=== PATIENT | female | born 1945 | race Caucasian/White ===

== ENCOUNTER 2018-04-11 17:31 | Inpatient (IN) | payer MEDICARE, OTHER ==
[~2018-04-11] VITALS: Ht 167.6 cm; Wt 87.1 kg
[2018-04-11] MEDS ORDERED: BUPROPN HCL PO (17:44)
[2018-04-11] MEDS ORDERED: FLUVOXAMINE 100 MG (17:44)
[2018-04-11] MEDS ORDERED: JANUMET (17:44)
[2018-04-11] MEDS ORDERED: DIVALPROEX 250 MG (17:44)
[2018-04-11] MEDS ORDERED: ARIPIPRAZOLE TAB 5MG (17:44)
[2018-04-11] MEDS ORDERED: CLONAZEPAM TAB 1MG (17:44)
[2018-04-11] MEDS ORDERED: OLANZAPINE 20 MG (17:44)
[2018-04-11] MEDS ORDERED: LOPE2CAP40 PO (17:44)
[2018-04-11] MEDS ORDERED: VESICARE TAB 10MG (17:44)
[2018-04-11] MEDS ORDERED: PROPRANOLOL 20 MG (17:44)
[2018-04-11 18:25] LABS: BASOPHILS % (AUTO) 0.2 % (0.0-2.0); EOSINOPHILS % (AUTO) 0.4 % (0.0-7.0); HEMOGLOBIN 12.7 g/dL (10.9-14.3); LYMPHOCYTES # (AUTO) 2.4 K/uL (20.0-40.0); LYMPHOCYTES % (AUTO) 25.6 % (20.5-51.5); MEAN CORPUSCULAR HEMOGLOBIN 28.1 uug (24.7-32.8); MEAN CORPUSCULAR HGB CONC 33 g/dL (32.3-35.6); MEAN CORPUSCULAR VOLUME 86.3 fL (75.5-95.3); MONOCYTES # (AUTO) 0.7 K/uL (2.0-10.0); NEUTROPHILS # (AUTO) 6.1 K/uL (1.8-8.9); NEUTROPHILS % (AUTO) 65.8 % (38.5-71.5); PLATELET COUNT (AUTO) 240 K/uL (179-408); RED BLOOD CELL COUNT(AUTO) 4.52 MIL/uL (3.63-4.92); WHITE BLOOD COUNT (AUTO) 9.2 K/uL (3.8-11.8)
[2018-04-11 18:28] LABS: CARBON DIOXIDE 25 mmol/L (21-32); CHLORIDE 105 mmol/L (98-107); GLUCOSE 176 mg/dL (74-106); POTASSIUM 3.7 mmol/L (3.5-5.1); UREA NITROGEN, BLOOD 18 mg/dL (7-18)
[2018-04-11 18:29] LABS: ETHANOL < 3 MG/DL (0-0)
[2018-04-11 18:40] LABS: ALANINE AMINOTRANSFERASE 16 U/L (14-59); ALKALINE PHOSPHATASE 79 U/L (50-136); ASPARTATE AMINOTRANSFERASE 8 U/L (15-37); BILIRUBIN,DIRECT 0.1 mg/dL (0.0-0.2); BILIRUBIN,TOTAL 0.2 mg/dL (0.2-1.0); TOTAL PROTEIN, SERUM 6.5 g/dL (6.4-8.2)
[2018-04-11 19:03] LABS: *BILIRUBIN,URIN NEGATIVE (NEGATIVE); *BLOOD, URINE 2+ (NEGATIVE); *COLOR,URINE YELLOW (YELLOW); *KETONES,URINE NEGATIVE (NEGATIVE); *UROBILINOGEN,URINE 0.2 E.U./dl (NORMAL); LEUKOCYTE ESTERASE ,URINE 1+ (NEGATIVE); NITRITE, URINE NEGATIVE (NEGATIVE); UGLUCOSE NEGATIVE (NEGATIVE)
[2018-04-11 19:12] LABS: *AMPHETAMINE, URINE NEGATIVE (NEGATIVE); *BARBITURATE, URINE NEGATIVE (NEGATIVE); *CANNABINOID, URINE NEGATIVE (NEGATIVE); *COCCAINE, URINE NEGATIVE (NEGATIVE); *OPIATE, URINE NEGATIVE (NEGATIVE); *PHENCYCLIDINE SCREEN,URINE NEGATIVE (NEGATIVE)
[2018-04-11 19:13] LABS: THYROID STIMULATING HORMONE 1.656 mIU/mL (0.358-3.740)
[2018-04-11 19:17] LABS: *CLARITY,URINE SLIGHTLY CLOUDY (CLEAR)
[2018-04-11 19:20] LABS: BACTERIA,URINE RARE /HPF (NONE SEEN); SQUAMOUS EPITHELIAL CELL,UR FEW /HPF (NONE SEEN)
[2018-04-11] MEDS ORDERED: ZOLPIDEM 5 MG TABLET PO PRN (22:00)
[2018-04-11] MEDS ORDERED: MAGNESIUM HYDROXIDE 30 ML LIQUID UDC PO PRN (22:00)
[2018-04-11] MEDS ORDERED: MAG HYDROX/AL HYDROX/SIMETH 30 ML LIQUID UDC PO PRN (22:00)
[2018-04-11] MEDS ORDERED: CLONAZEPAM 0.5 MG TABLET PO SCH (22:00)
[2018-04-11] MEDS ORDERED: CLONAZEPAM 0.5 MG TABLET PO PRN (22:15)
[2018-04-12 07:30] VITALS: BP 166/71
[2018-04-12] MEDS ORDERED: ZOLPIDEM 5 MG TABLET PO PRN (08:00)
[2018-04-12] MEDS ORDERED: DEXTROSE 50% 50 ML DISP.SYRIN IV PRN (13:30)
[2018-04-12] MEDS ORDERED: LOPERAMIDE HCL 2 MG CAPSULE PO PRN (13:30)
[2018-04-12] MEDS: CEphaleXIN 500 MG CAPSULE PO SCH ×2 (14:50→21:50)
[2018-04-12 15:35] VITALS: BP 163/72
[2018-04-12] MEDS: OXYBUTYNIN CHLORIDE 5 MG TABLET PO SCH (16:36)
[2018-04-12] MEDS: BLOOD SUGAR DIAGNOSTIC 1 EACH STRIP VI SCH ×2 (16:36→20:11)
[2018-04-12 20:21] VITALS: BP 127/82
[2018-04-12] MEDS: CLONAZEPAM 1 MG TABLET PO SCH (20:27)
[2018-04-12] MEDS: DIVALPROEX SPRINKLE 125 MG CAP.SPRINK PO SCH (20:27)
[2018-04-12] MEDS: PROPRANOLOL HCL 20 MG TABLET PO SCH (20:28)
[2018-04-12] MEDS: ZIPRASIDONE 20 MG CAPSULE PO SCH (20:48)
[2018-04-13] MEDS: CEphaleXIN 500 MG CAPSULE PO SCH ×3 (06:28→22:01)
[2018-04-13] MEDS: BLOOD SUGAR DIAGNOSTIC 1 EACH STRIP VI SCH ×4 (06:33→20:22)
[2018-04-13 07:30] VITALS: BP 192/94
[2018-04-13] MEDS ORDERED: SOLIFENACIN SUCCINATE 5 MG TABEC PO SCH (09:00)
[2018-04-13] MEDS ORDERED: buPROPion XL 150 MG TAB.SR.24H PO SCH (09:00)
[2018-04-13] MEDS: FLUVOXAMINE MALEATE 50 MG TABLET PO SCH ×2 (09:44→17:35)
[2018-04-13] MEDS: ZIPRASIDONE 20 MG CAPSULE PO SCH ×2 (09:44→20:15)
[2018-04-13] MEDS: OXYBUTYNIN CHLORIDE 5 MG TABLET PO SCH ×3 (09:44→17:35)
[2018-04-13] MEDS: PROPRANOLOL HCL 20 MG TABLET PO SCH ×2 (09:45→20:17)
[2018-04-13 16:00] VITALS: BP 150/63
[2018-04-13 20:00] VITALS: BP 161/73
[2018-04-13] MEDS: CLONAZEPAM 1 MG TABLET PO SCH (20:15)
[2018-04-13] MEDS: DIVALPROEX SPRINKLE 125 MG CAP.SPRINK PO SCH (20:15)
[2018-04-13] MEDS: INSULIN REGULAR, HUMAN 300 UNIT/3 ML VIAL SQ PRN (20:26)
[2018-04-14] MEDS: CEphaleXIN 500 MG CAPSULE PO SCH ×3 (06:09→21:23)
[2018-04-14] MEDS: BLOOD SUGAR DIAGNOSTIC 1 EACH STRIP VI SCH ×4 (06:33→20:28)
[2018-04-14 07:30] VITALS: BP 164/67
[2018-04-14] MEDS: ZIPRASIDONE 20 MG CAPSULE PO SCH ×2 (08:42→20:12)
[2018-04-14] MEDS: OXYBUTYNIN CHLORIDE 5 MG TABLET PO SCH ×3 (08:42→17:28)
[2018-04-14] MEDS: FLUVOXAMINE MALEATE 50 MG TABLET PO SCH ×2 (08:43→17:28)
[2018-04-14] MEDS: PROPRANOLOL HCL 20 MG TABLET PO SCH ×2 (08:43→20:12)
[2018-04-14] MEDS: buPROPion XL 150 MG TAB.SR.24H PO SCH (08:44)
[2018-04-14] MEDS: LOPERAMIDE HCL 2 MG CAPSULE PO PRN (10:06)
[2018-04-14] MEDS: ACETAMINOPHEN 325 MG TABLET PO PRN (14:40)
[2018-04-14 16:05] VITALS: BP 149/75
[2018-04-14 20:08] VITALS: BP 132/69
[2018-04-14] MEDS: CLONAZEPAM 1 MG TABLET PO SCH (20:12)
[2018-04-14] MEDS: DIVALPROEX SPRINKLE 125 MG CAP.SPRINK PO SCH (20:12)
[2018-04-14] MEDS: INSULIN REGULAR, HUMAN 300 UNIT/3 ML VIAL SQ PRN (20:29)
[2018-04-15] MEDS: CEphaleXIN 500 MG CAPSULE PO SCH ×3 (06:28→21:05)
[2018-04-15] MEDS: BLOOD SUGAR DIAGNOSTIC 1 EACH STRIP VI SCH ×4 (06:46→20:17)
[2018-04-15 07:30] VITALS: BP_SYST 124; BP_SYST 128; BP_DIAS 32; BP_DIAS 71
[2018-04-15] MEDS: ZIPRASIDONE 20 MG CAPSULE PO SCH ×2 (08:14→20:01)
[2018-04-15] MEDS: buPROPion XL 150 MG TAB.SR.24H PO SCH (08:14)
[2018-04-15] MEDS: OXYBUTYNIN CHLORIDE 5 MG TABLET PO SCH ×3 (08:15→17:36)
[2018-04-15] MEDS: PROPRANOLOL HCL 20 MG TABLET PO SCH ×2 (08:15→20:00)
[2018-04-15] MEDS: FLUVOXAMINE MALEATE 50 MG TABLET PO SCH (08:20)
[2018-04-15] MEDS: CULTURELLE CAPSULE PO SCH ×2 (10:24→20:00)
[2018-04-15 16:09] VITALS: BP 149/65
[2018-04-15] MEDS: INSULIN REGULAR, HUMAN 300 UNIT/3 ML VIAL SQ PRN (16:57)
[2018-04-15] MEDS: DIVALPROEX SPRINKLE 125 MG CAP.SPRINK PO SCH (20:02)
[2018-04-15] MEDS: CLONAZEPAM 0.5 MG TABLET PO SCH (20:18)
[2018-04-15 20:56] VITALS: BP 126/66
[2018-04-15] MEDS ORDERED: CLONAZEPAM 1 MG TABLET PO SCH (21:00)
[2018-04-15] MEDS: LOPERAMIDE HCL 2 MG CAPSULE PO PRN (23:49)
[2018-04-16] MEDS: CEphaleXIN 500 MG CAPSULE PO SCH ×3 (06:11→21:20)
[2018-04-16] MEDS: BLOOD SUGAR DIAGNOSTIC 1 EACH STRIP VI SCH ×4 (06:42→20:28)
[2018-04-16 07:30] VITALS: BP 166/62
[2018-04-16] MEDS: INSULIN REGULAR, HUMAN 300 UNIT/3 ML VIAL SQ PRN ×2 (07:32→20:45)
[2018-04-16] MEDS: CULTURELLE CAPSULE PO SCH ×2 (08:42→20:33)
[2018-04-16] MEDS: buPROPion XL 150 MG TAB.SR.24H PO SCH (08:43)
[2018-04-16] MEDS: OXYBUTYNIN CHLORIDE 5 MG TABLET PO SCH ×3 (08:45→16:54)
[2018-04-16] MEDS: PROPRANOLOL HCL 20 MG TABLET PO SCH ×2 (08:45→20:32)
[2018-04-16] MEDS: FLUVOXAMINE MALEATE 50 MG TABLET PO SCH (08:45)
[2018-04-16] MEDS: ACETAMINOPHEN 325 MG TABLET PO PRN (14:51)
[2018-04-16 15:00] VITALS: BP 168/83
[2018-04-16 20:00] VITALS: BP 160/75
[2018-04-16] MEDS: ZIPRASIDONE 20 MG CAPSULE PO SCH (20:31)
[2018-04-16] MEDS: CLONAZEPAM 0.5 MG TABLET PO SCH (20:32)
[2018-04-16] MEDS: DIVALPROEX SPRINKLE 125 MG CAP.SPRINK PO SCH (20:33)
[2018-04-16 21:38] VITALS: BP 154/59
[2018-04-17] MEDS: CEphaleXIN 500 MG CAPSULE PO SCH ×3 (06:20→21:34)
[2018-04-17] MEDS: BLOOD SUGAR DIAGNOSTIC 1 EACH STRIP VI SCH ×4 (06:33→21:41)
[2018-04-17 06:42] LABS: BASOPHILS % (AUTO) 0.2 % (0.0-2.0); EOSINOPHILS # (AUTO) 0.1 K/uL (0.0-0.7); EOSINOPHILS % (AUTO) 0.7 % (0.0-7.0); HEMATOCRIT 37.6 % (31.2-41.9); HEMOGLOBIN 12.7 g/dL (10.9-14.3); LYMPHOCYTES # (AUTO) 3.7 K/uL (20.0-40.0); LYMPHOCYTES % (AUTO) 36.2 % (20.5-51.5); MEAN CORPUSCULAR HEMOGLOBIN 28.7 uug (24.7-32.8); MEAN CORPUSCULAR HGB CONC 34 g/dL (32.3-35.6); MEAN CORPUSCULAR VOLUME 84.9 fL (75.5-95.3); MONOCYTES # (AUTO) 0.8 K/uL (2.0-10.0); MONOCYTES % (AUTO) 8.2 % (0.0-11.0); NEUTROPHILS # (AUTO) 5.5 K/uL (1.8-8.9); NEUTROPHILS % (AUTO) 54.7 % (38.5-71.5); PLATELET COUNT (AUTO) 213 K/uL (179-408); RED BLOOD CELL COUNT(AUTO) 4.43 MIL/uL (3.63-4.92); WHITE BLOOD COUNT (AUTO) 10.1 K/uL (3.8-11.8)
[2018-04-17 06:50] LABS: POTASSIUM 3.9 mmol/L (3.5-5.1)
[2018-04-17 07:01] LABS: THYROID STIMULATING HORMONE 2.812 mIU/mL (0.358-3.740)
[2018-04-17 08:10] VITALS: BP 164/66
[2018-04-17] MEDS: buPROPion XL 150 MG TAB.SR.24H PO SCH (08:40)
[2018-04-17] MEDS: CULTURELLE CAPSULE PO SCH ×2 (08:40→21:34)
[2018-04-17] MEDS: PROPRANOLOL HCL 20 MG TABLET PO SCH ×2 (08:40→21:37)
[2018-04-17] MEDS: OXYBUTYNIN CHLORIDE 5 MG TABLET PO SCH ×3 (08:40→17:07)
[2018-04-17] MEDS: INSULIN REGULAR, HUMAN 300 UNIT/3 ML VIAL SQ PRN (08:41)
[2018-04-17 16:11] VITALS: BP 171/78
[2018-04-17 17:04] VITALS: BP 163/66
[2018-04-17 20:00] VITALS: BP 132/67
[2018-04-17] MEDS: DIVALPROEX SPRINKLE 125 MG CAP.SPRINK PO SCH (21:34)
[2018-04-17] MEDS: CLONAZEPAM 0.5 MG TABLET PO SCH (21:35)
[2018-04-17] MEDS: ZIPRASIDONE 20 MG CAPSULE PO SCH (21:35)
[2018-04-18] MEDS: CEphaleXIN 500 MG CAPSULE PO SCH ×3 (06:39→22:07)
[2018-04-18] MEDS: BLOOD SUGAR DIAGNOSTIC 1 EACH STRIP VI SCH ×4 (06:40→20:13)
[2018-04-18 07:30] VITALS: BP 137/68
[2018-04-18] MEDS: OXYBUTYNIN CHLORIDE 5 MG TABLET PO SCH ×3 (08:27→16:41)
[2018-04-18] MEDS: buPROPion XL 150 MG TAB.SR.24H PO SCH (08:27)
[2018-04-18] MEDS: CULTURELLE CAPSULE PO SCH ×2 (08:29→20:09)
[2018-04-18] MEDS: PROPRANOLOL HCL 20 MG TABLET PO SCH ×2 (09:14→20:10)
[2018-04-18] MEDS: LOPERAMIDE HCL 2 MG CAPSULE PO PRN (09:14)
[2018-04-18 15:57] VITALS: BP 156/77
[2018-04-18] MEDS: INSULIN REGULAR, HUMAN 300 UNIT/3 ML VIAL SQ PRN ×2 (16:14→20:16)
[2018-04-18 20:03] VITALS: BP 134/74
[2018-04-18] MEDS: DIVALPROEX SPRINKLE 125 MG CAP.SPRINK PO SCH (20:09)
[2018-04-18] MEDS: ZIPRASIDONE 20 MG CAPSULE PO SCH (20:09)
[2018-04-18] MEDS: CLONAZEPAM 0.5 MG TABLET PO SCH (20:09)
[2018-04-19] MEDS: CEphaleXIN 500 MG CAPSULE PO SCH (06:12)
[2018-04-19] MEDS: BLOOD SUGAR DIAGNOSTIC 1 EACH STRIP VI SCH ×4 (06:17→20:07)
[2018-04-19 07:57] VITALS: BP 168/87
[2018-04-19] MEDS: buPROPion XL 150 MG TAB.SR.24H PO SCH (08:24)
[2018-04-19] MEDS: CULTURELLE CAPSULE PO SCH ×2 (08:24→20:06)
[2018-04-19] MEDS: OXYBUTYNIN CHLORIDE 5 MG TABLET PO SCH ×3 (08:24→16:48)
[2018-04-19] MEDS: PROPRANOLOL HCL 20 MG TABLET PO SCH ×2 (08:25→20:07)
[2018-04-19] MEDS: INSULIN REGULAR, HUMAN 300 UNIT/3 ML VIAL SQ PRN (14:05)
[2018-04-19] MEDS: AMLODIPINE 2.5 MG TABLET PO SCH (16:47)
[2018-04-19 17:03] VITALS: BP 179/81
[2018-04-19] MEDS: ACETAMINOPHEN 325 MG TABLET PO PRN (19:49)
[2018-04-19] MEDS: ZIPRASIDONE 20 MG CAPSULE PO SCH (20:06)
[2018-04-19] MEDS: DIVALPROEX SPRINKLE 125 MG CAP.SPRINK PO SCH (20:06)
[2018-04-19] MEDS: CLONAZEPAM 0.5 MG TABLET PO SCH (20:06)
[2018-04-19 20:20] VITALS: BP 178/76
[2018-04-20] MEDS: BLOOD SUGAR DIAGNOSTIC 1 EACH STRIP VI SCH (06:36)
[2018-04-20 07:30] VITALS: BP 180/82
[2018-04-20] MEDS: OXYBUTYNIN CHLORIDE 5 MG TABLET PO SCH (08:33)
[2018-04-20 08:34] VITALS: BP 180/82
[2018-04-20] MEDS: PROPRANOLOL HCL 20 MG TABLET PO SCH (08:34)
[2018-04-20] MEDS: AMLODIPINE 2.5 MG TABLET PO SCH (08:34)
[2018-04-20] MEDS: buPROPion XL 150 MG TAB.SR.24H PO SCH (08:34)
[2018-04-20] MEDS: CULTURELLE CAPSULE PO SCH (08:35)
[2018-04-20] MEDS ORDERED: CLONIDINE HCL 0.1 MG TABLET PO PRN (09:15)
== END 2018-04-20 12:00 | disposition home health service (06) | DRG 885 ==
LOC: ER 17:34 → GPS 21:14
PROVIDERS: ADMIT Psychiatry & Neurology Psychiatry; ATTEND Hospitalist
DX: F33.3 Major depressive disorder, recurrent, severe with psychotic symptoms (principal); E44.1 Mild protein-calorie malnutrition; N39.0 Urinary tract infection, site not specified; F41.1 Generalized anxiety disorder; E66.01 Morbid (severe) obesity due to excess calories; F22 Delusional disorders; E11.9 Type 2 diabetes mellitus without complications; Z68.31 Body mass index [BMI] 31.0-31.9, adult; Z71.3 Dietary counseling and surveillance; R32 Unspecified urinary incontinence; G47.00 Insomnia, unspecified; Z91.5 Personal history of self-harm; Z90.49 Acquired absence of other specified parts of digestive tract; Z91.14 Patient's other noncompliance with medication regimen; Z82.49 Family history of ischemic heart disease and other diseases of the circulatory system; Z83.3 Family history of diabetes mellitus; Z79.84 Long term (current) use of oral hypoglycemic drugs
CPT/HCPCS: 36415; 71045; 80164; 80307; 84443; 85025; 93005; A4663; G0480; J1815